=== PATIENT | female | born 1960 | race Caucasian/White ===

== ENCOUNTER 2025-02-21 06:12 | Emergency (ER) | payer MEDICARE, OTHER ==
[2025-02-21 06:56] LABS: BASOPHILS PERCENT AUTO 0.4 % (0.1-1.3); EOSINOPHILS ABSOLUTE AUTO 0.17 K/uL (0.00-0.40); EOSINOPHILS PERCENT AUTO 3.3 % (0.0-5.4); IMMATURE GRAN ABSOLUTE AUTO 0.04 K/uL (0.00-0.23); IMMATURE GRAN PERCENT AUTO 0.8 % (0.0-0.7); LYMPHOCYTES ABSOLUTE AUTO 1.29 K/uL (0.8-3.3); LYMPHOCYTES PERCENT AUTO 24.7 % (11.4-47.7); MONOCYTES ABSOLUTE AUTO 0.51 K/uL (0.20-0.90); MONOCYTES PERCENT AUTO 9.8 % (3.3-12.6); NEUTROPHILS ABSOLUTE AUTO 3.19 K/uL (1.0-7.6); NEUTROPHILS PERCENT AUTO 61.0 % (40.0-78.1); PLATELET COUNT,PLT 269 K/uL (130-375); RED BLOOD CELL COUNT 4.51 M/uL (3.77-5.24); WHITE BLOOD CELL COUNT,WBC 5.2 K/uL (3.2-11.0)
[2025-02-21 06:59] LABS: BASOPHILS ABSOLUTE AUTO 0.02 K/uL (0.00-0.10)
[2025-02-21] MEDS: Ketorolac 15 MG/ML SDV IVPUSH ONE (07:11)
[2025-02-21 07:16] LABS: BLOOD UREA NITROGEN,BUN 11.0 mg/dL (7-18); CARBON DIOXIDE,CO2 30.0 mmol/L (21-32); CHLORIDE,CL 104.0 mmol/L (100-108); CREATINE KINASE,CK 45.0 U/L (26-192); CREATININE 0.8 mg/dL (0.6-1.0); EST CRCL DRUG DOSING (CG) 63.09 mL/min; ESTIMATED GFR 82.0 mL/min (>60); GLUCOSE RANDOM 97.0 mg/dL (74-106); POTASSIUM,K 3.9 mmol/L (3.6-5.2); SODIUM,NA 142.0 mmol/L (140-148)
[2025-02-21 07:25] LABS: APPEARANCE,URINE CLEAR (CLEAR); GLUCOSE,URINE NEGATIVE (NEGATIVE); OCCULT BLOOD,URINE NEGATIVE (NEGATIVE)
[2025-02-21 07:35] LABS: EPITHELIAL CELLS,URINE NOT SEEN
== END 2025-02-21 10:14 | disposition home or self-care (01) ==
LOC: JP.ED 06:12
DX: M54.30 Sciatica, unspecified side (principal); Z79.899 Other long term (current) drug therapy
CPT/HCPCS: 36415; 72131; 76377; 80048; 81001; 82550; 85025; 93971; 96374; 99284; J1885